=== PATIENT | female | born 2000 | race Caucasian/White ===

== ENCOUNTER 2021-05-12 20:41 | Emergency (ER) | payer SELFPAY ==
[2021-05-12 20:45] VITALS: BP 133/85; PULSE 136; RESP 18; O2SAT 96
--- NOTE | 2021-05-12 21:11 | ED.GENADULT ---
HPI - General Adult General Chief complaint: Unspecified <LOLIS Arrington Last Filed: 05/13/21 01:26> Stated complaint: laceration to arm <LOLIS Arrington Last Filed: 05/13/21 01:26> Time Seen by Provider: 05/12/21 20:53 <LOLIS Arrington Last Filed: 05/13/21 01:26> Source: patient <LOLIS Arrington Last Filed: 05/13/21 01:26> Mode of arrival: ambulatory <LOLIS Arrington Last Filed: 05/13/21 01:26> Limitations: no limitations <LOLIS Arrington Last Filed: 05/13/21 01:26> History of Present Illness HPI narrative: This is a 21 year old female that presents to the ER for laceration to the right forearm sustained just prior to arrival. Reports she got angry and took it out on herself. Reports she cut herself with a knife. She was not attempting to end her life. She does have history of previous self harm. Patient noted to have multiple superficial abrasions and scars to the bilateral upper and lower extremities. She is not up to date on tetanus. Reports she used to see a counselor, but she is no longer seeing them. Denies decreased ROM or numbness. <Katty Hayward PA-C - Last Filed: 05/13/21 01:26> Related Data Allergies/adverse reactions: Allergies Allergy/AdvReac Type Severity Reaction Status Date / Time No Known Allergies Allergy Verified 05/12/21 21:03 <LOLIS Arrington Last Filed: 05/13/21 01:26> Review of Systems Review of Systems: CONSTITUTIONAL: Denies fever SKIN: Reports laceration PSYCHIATRIC: Reports anxiety and depression. <LOLIS Arrington Last Filed: 05/13/21 01:26> All systems reviewed & are unremarkable except as noted in HPI and below <LOLIS Arrington Last Filed: 05/13/21 01:26> [facility] Past Medical History Medical History: Medical History (Updated 05/13/21 @ 01:21 by Katty Hayward PA-C) History of depression <Katty Hayward PA-C - Last Filed: 05/13/21 01:26> Social History Social History: Social History (Updated 05/12/21 @ 21:15 by Katty Hayward PA-C) Smoking status: Current every day smoker <Katty Hayward PA-C - Last Filed: 05/13/21 01:26> Exam Narrative: GENERAL: Well-appearing, well-nourished, and in no acute distress. HEAD: Normocephalic, atraumatic. EYES: EOMI. EXTREMITIES: Normal range of motion. No edema. Several scars noted to the bilateral forearms. Superficial abrasions noted to the thighs. Left forearm with 5cm linear laceration into subcutaneous tissue SKIN: Warm, dry, no rash. NEURO: No focal deficits. Alert and oriented x3. PSYCH: Patient is tearful and mildly anxious appearing <Katty Hayward PA-C - Last Filed: 05/13/21 01:26> Course GUIDE ESCORT/PA Physician Supervision I did not see this patient nor was the care plan discussed with me. I was available for evaluation and consultation, I agree with the documentation as above <Shiv Sandoval MD - Last Filed: 05/13/21 01:37> Consultations Consultation #1: Patient was evaluated by crisis and a safety plan is in place. She was given resources. <Katty Hayward PA-C - Last Filed: 05/13/21 01:26> Date: 05/13/21 <Katty Hayward PA-C - Last Filed: 05/13/21 01:26> Time: 01:00 <Katty Hayward PA-C - Last Filed: 05/13/21 01:26> Vital Signs Vital signs: Vital Signs Pulse Rate 136 H 05/12/21 20:45 Respiratory Rate 18 05/12/21 20:45 Blood Pressure 133/85 05/12/21 20:45 Pulse Oximetry 96 05/12/21 20:45 Pulse Rate 89 05/13/21 00:21 Respiratory Rate 18 05/13/21 00:21 Blood Pressure 129/81 05/13/21 00:21 Pulse Oximetry 98 05/13/21 00:21 <Katty Hayward PA-C - Last Filed: 05/13/21 01:26> Vital Signs Pulse Rate 136 H 05/12/21 20:45 Respiratory Rate 18 05/12/21 20:45 Blood Pressure 133/85 05/12/21 20:45 Pulse Oximetry 96 05/12/21 20:45 Pulse Rate 89 05/13/21 00:21 Respiratory Rate 18 05/13/21 00:21 Blo
[2021-05-12] MEDS: TETANUS,DIPHTHERIA,AC PERTUSSIS ADULT (0.5 ML) BOOSTRIX IM (21:33)
[2021-05-12 21:48] LABS: Basophils Absolute Auto 0.1 K/mm3 (0.0-0.1); Basophils Percent Auto 0.7 % (0.2-1.2); Eosinophils Absolute Auto 0.1 K/mm3 (0-0.3); Eosinophils Percent Auto 0.9 % (0-4.4); Hematocrit 38.8 % (37.0-47.0); Hemoglobin 13.2 g/dL (12.0-15.0); Immature Granulocyte Absolute 0.03 K/mm3 (0.00-0.031); Immature Granulocyte Percent A 0.3 % (0-0.5); Lymphocytes Absolute Auto 1.81 K/mm3 (0.9-3.2); Lymphocytes Percent Auto 18.8 % (18.3-44.2); Mean Corpuscular Hemoglobin 30.6 pg (26-34); Mean Corpuscular Volume 89.8 fl (80-100); Mean Platelet Volume 9.9 fl (7.4-10.4); Monocytes Absolute Auto 0.8 K/mm3 (0.1-0.6); Monocytes Percent Auto 8.1 % (2.6-8.5); Neutrophils Absolute Auto 6.9 K/mm3 (1.3-6.7); Neutrophils Percent Auto 71.2 % (45.5-73.1); Platelet Count Result 262 k/mm3 (150-375); Red Blood Count 4.32 M/mm3 (4.2-5.4); Red Cell Distribution Width 12.4 % (11.5-14.5); White Blood Count 9.6 K/mm3 (4.5-10.0)
[2021-05-12 22:10] LABS: Alanine Aminotransferase 17 U/L (4-35); Albumin Level 4.7 g/dL (3.5-5.1); Alkaline Phosphatase 44 U/L (38-126); Anion Gap 9 mmol/L (8-16); Aspartate Amino Transferase 27 U/L (14-36); Bilirubin,Total 0.3 mg/dL (0.2-1.3); Blood Urea Nitrogen 12 mg/dL (7-17); Calcium 9.6 mg/dL (8.4-10.2); Carbon Dioxide 25 mmol/L (22-30); Chloride 105 mmol/L (98-107); Estimated CRCL calculation 119 ml/min; Estimated Glomerular Filt Rate > 60; Glucose 119 mg/dL (65-110); Potassium 3.7 mmol/L (3.4-5.0); Sodium 139 mmol/L (137-145)
[2021-05-12 22:20] LABS: Ethanol < 10 mg/dL (<10)
[2021-05-12 22:44] LABS: Add Urine Microscopic? YES; Appearance Urine Clear (Clear); Bacteria Urine Trace /hpf; Bilirubin Urine Negative (Negative); Blood Urine Negative (Negative); Color Urine Yellow (Yellow); Glucose Urine UA Negative (Negative); Ketones Urine 1+ mg/dL (Negative); Leukocyte Esterase Ur 1+ LEU/UL (Negative); Mucus Urine Heavy /lpf; Nitrate Urine Negative (Negative); Protein Urine 2+ mg/dL (Negative); Specific Grav Ur 1.027 (1.001-1.035); Squamous Epithelial Cell Urine Many /hpf (Few); WBC Urine 16-20 /hpf
[2021-05-12 23:08] LABS: Barbiturate Screen Urine Negative (Negative); Benzodiazepines Screen Urine Negative (Negative)
[2021-05-12 23:20] LABS: Cannabinoid Screen Urine Negative (Negative); Cocaine Screen Urine Negative (Negative); Methadone Screen Urine Negative (Negative); Opiate Screen Urine Negative (Negative); Phencyclidine Screen Urine Negative (Negative)
--- NOTE | 2021-05-12 23:20 | PC.NURSE ---
patient is medically cleared and this rn is calling crisis at this time.
--- NOTE | 2021-05-12 23:28 | PC.NURSE ---
this rn attempted to contact robina at this time . Denial per Kymberly.
--- NOTE | 2021-05-12 23:33 | PC.NURSE ---
returned call to crisis at this time, pt was denied by robina, so a draw off worker would be out shortly to evaluate the patient.
[2021-05-12 23:40] LABS: Amphetamine Screen Urine Positive (Negative)
[2021-05-13 00:21] VITALS: BP 129/81; PULSE 89; RESP 18; O2SAT 98
== END 2021-05-13 01:51 | disposition home or self-care (01) ==
PROVIDERS: Physician Assistant; Emergency Provider Emergency Medicine
DX: S51.812A Laceration without foreign body of left forearm, initial encounter (principal); R45.88 Nonsuicidal self-harm; F17.200 Nicotine dependence, unspecified, uncomplicated; Z23 Encounter for immunization; W26.0XXA Contact with knife, initial encounter
CPT/HCPCS: 12002; 36415; 80053; 80307; 81001; 81025; 84443; 85025; 87086; 87088; 90471; 90715; 99284

== ENCOUNTER 2021-12-20 16:55 | Inpatient (IN) | payer OTHER, SELFPAY ==
[2021-12-20] VITALS (28 sets, daily range): BP systolic 76–124; BP diastolic 56–80; PULSE 84–99; RESP 16–21; TEMP 37; O2SAT 98–100; BMI 28.0
--- NOTE | ~2021-12-20 | US_ITS ---
EXAMINATION: US venous doppler LE RT DATE: 12/21/2021 09:20 INDICATION: Right lower limb swelling. TECHNIQUE: Grayscale ultrasound images without and with compression and Doppler ultrasound images of the right lower extremity veins were obtained. COMPARISON: None. FINDINGS: The visualized portions of right common femoral vein, profunda (deep) femoral vein, femoral vein, pop liteal vein, peroneal veins, posterior tibial veins, and greater saphenous vein outflow are patent. I n the calf, there is hyperechoic subcutaneous fat and edema, consistent with inflammation. IMPRESSION: 1. No deep venous thrombosis. 2. Subcutaneous inflammation in the patient's area of erythema in the right calf. Reviewed, dictated and finalized at location B. IMPRESSION: 1. No deep venous thrombosis. 2. Subcutaneous inflammation in the patient's area of erythema in the right luke f.
--- NOTE | ~2021-12-20 | US_ITS ---
EXAMINATION: US soft tissue LE RT DATE: 12/22/2021 16:02 INDICATION: Swelling and erythema at the medial right lower leg. Assess for hematoma or abscess. TECHNIQUE: Multiple grayscale and Doppler ultrasound images of the region of concern at the medial as pect of the proximal right calf were obtained. COMPARISON: Ultrasound dated 12/21/2021 and right tibia/fibular radiographs dated 12/20/2021 FINDINGS: There is an 8.2 x 4.0 x 7.9 cm anechoic fluid collection in the subcutaneous tissues at the region of concern. There is mild hyperemia in the overlying subcutaneous tissues on color Doppler. No evident internal vascular flow within the lesion on color Doppler. IMPRESSION: 1. 2.2 x 4.0 x 7.9 cm loculated fluid collection in the subcutaneous tissues at the region of concern . Differential would include hematoma or abscess. Reviewed, dictated and finalized at location A. IMPRESSION: 1. 2.2 x 4.0 x 7.9 cm loculated fluid collection in the subcutaneous tissues at the region of concern. Differential would include hematoma or abscess.
--- NOTE | ~2021-12-20 | US_ITS ---
EXAMINATION: US OB follow up DATE: 12/21/2021 09:20 INDICATION: Sepsis. No care. TECHNIQUE: Real-time ultrasound of the pelvis was performed. COMPARISON: None. FINDINGS: There is a single living fetus in breech presentation. The placenta is anterior, 1.6 cm from the cer vix. heart rate is 176 beats per minute (bpm). The amniotic fluid volume is subjectively normal . The following biometric data were obtained: Biparietal diameter (BPD): 4.8 cm; head circumference (HC): 17.3 cm; abdominal circumference (AC): 16 .0 cm; femur length (FL): 3.1 cm. These measurements are concordant. Estimated weight is 348 g +/- 52 g, which correlates with the 26th percentile when 05/05/22 is u sed as estimated date of delivery. As single measurements, these parameters are each equal to the following estimated gestational ages: BPD: 20 weeks 3 days. HC: 19 weeks 6 days. AC: 21 weeks 0 days. FL: 19 weeks 5 days. estimated gestational age based solely on measurements from this exam is 20 weeks 2 days +/- 1 weeks 3 days. IMPRESSION: 1. Single living fetus in breech presentation. 2. Estimated weight is 348 g +/- 52 g, which correlates with the 26th percentile when 05/05/22 is used as estimated date of delivery. 3. Low-lying placenta. Reviewed, dictated and finalized at location B. IMPRESSION: 1. Single living fetus in breech presentation. 2. Estimated weight is 348 g +/- 52 g, which correlates with the 26th pe rcentile when 05/05/22 is used as estimated date of delivery. 3. Low-lying placenta.
--- NOTE | ~2021-12-20 | XR_ITS ---
EXAM: XR tibia fibula RT 2V HISTORY: pain, swelling, redness . COMPARISON: None available. FINDINGS: Normal mineralization. No fracture or dislocation. No lytic or blastic lesion. Joint space s are maintained. No erosion or periosteal change. Soft tissue swelling at the level of the proximal right tibia. IMPRESSION: No acute osseous finding in the right tibia or fibula. Reviewed, dictated and finalized at location K.
[2021-12-20 21:13] LABS: Appearance Urine Cloudy (Clear); Bilirubin Urine Negative (Negative); Blood Urine Negative (Negative); Color Urine Yellow (Yellow); Glucose Urine UA Negative (Negative); Ketones Urine Negative (Negative); Leukocyte Esterase Ur 1+ LEU/UL (Negative); Nitrate Urine Negative (Negative); Protein Urine Negative (Negative); Urobilinogen Urine 0.2 mg/dL (<2.0)
[2021-12-20 21:18] LABS: Amorphous Sediment Urine Few; Bacteria Urine Trace /hpf; RBC Urine 0-2 /hpf (0-2); Squamous Epithelial Cell Urine Many /hpf (Few)
[2021-12-20 21:19] LABS: Add Urine Microscopic? YES
[2021-12-20 21:21] LABS: Lactic Acid Reflex 1.3 mmol/L (0.7-2.0)
[2021-12-20 21:24] LABS: Basophils Percent Auto 0.2 % (0.2-1.2); Hematocrit 33.4 % (37.0-47.0); Hemoglobin 11.5 g/dL (12.0-15.0); Immature Granulocyte Absolute 0.25 K/mm3 (0.00-0.031); Mean Corpuscular HGB Conc 34.4 g/dl (32-36); Mean Platelet Volume 9.7 fl (7.4-10.4); Monocytes Absolute Auto 1.5 K/mm3 (0.1-0.6); Monocytes Percent Auto 5.8 % (2.6-8.5); Neutrophils Absolute Auto 23.6 K/mm3 (1.3-6.7); Platelet Count Result 277 k/mm3 (150-375); Red Blood Count 3.71 M/mm3 (4.2-5.4); Red Cell Distribution Width 12.9 % (11.5-14.5); White Blood Count 26.2 K/mm3 (4.5-10.0)
[2021-12-20 21:26] LABS: Alanine Aminotransferase 25 U/L (6-35); Albumin Level 3.9 g/dL (3.5-5.1); Alkaline Phosphatase 81 U/L (38-126); Anion Gap 4 mmol/L (8-16); Aspartate Amino Transferase 30 U/L (14-36); Bilirubin,Total 0.3 mg/dL (0.2-1.3); Blood Urea Nitrogen 6 mg/dL (7-17); CRP 8.4 mg/dL (<1.0); Calcium 9.1 mg/dL (8.4-10.2); Carbon Dioxide 23 mmol/L (22-30); Chloride 101 mmol/L (98-107); Creatine Kinase 26 U/L (30-135); Estimated CRCL calculation 146 ml/min; Estimated Glomerular Filt Rate > 60; Glucose 106 mg/dL (65-110); Sodium 128 mmol/L (137-145)
[2021-12-20 21:29] LABS: INR 1.1; Prothrombin Time 13.3 Seconds (11.1-14.7)
[2021-12-20 21:30] LABS: Partial Thromboplastin Time 25.8 SECONDS (22.3-36.8)
[2021-12-20] MEDS: LACTATED RINGERS 1,000 ML 999 ML IV CONT (21:32)
--- NOTE | 2021-12-20 21:51 | ED.LOWEXIN ---
HPI - Extremity Injury (Lower) General Chief Complaint: Extremity Injury, Lower Stated Complaint: right leg injury 1 1/2 weeks ago Time Seen by Provider: 12/20/21 20:00 Source: patient and RN notes reviewed Mode of arrival: ambulatory Limitations: no limitations History of Present Illness HPI Narrative: This is a 21 year old female [place] 20wks by US who presents for evaluation of right leg redness, pain and swelling. She states over 1 week ago she fell onto the bench outside of her window. She had an abrasion to her leg at that point, but she has been able to ambulate with difficulty. Today she developed sudden onset right lower leg redness and pain. She denies fever, chills, nausea, vomiting, abdominal pain or vaginal bleeding. She denies chest pain or shortness of breath. She denies hitting her head head or LOC. Patient reports having recent US showing due date is 05/05/2022. She has not received care though. MD complaint: leg injury and fall Related Data Home Medications Medication Instructions Recorded Confirmed No Home Medications 12/21/21 12/21/21 Allergies Allergy/AdvReac Type Severity Reaction Status Date / Time No Known Allergies Allergy Verified 12/20/21 20:00 Review of Systems Review of Systems: All systems reviewed & are unremarkable except as noted in HPI and below PMFSH Past Medical History Medical History (Updated 12/20/21 @ 22:02 by Magalys Hernandez MD) History of depression Social History Social History (Updated 05/12/21 @ 21:15 by Katty Hayward PA-C) Years smoked: 2 Smoking status: Current some day smoker Tobacco type: cigarettes Second hand tobacco smoke exposure: Yes Alcohol intake: current Drinks per week: 1 Substance use: former Substance use type: methamphetamine Last use: November Spiritual care concerns: No Exam Const: General: no acute distress and alert Orientation/consciousness: patient oriented x3 Eyes: EOM: EOMs intact bilaterally Chest: Chest palpation & inspection: normal inspection of the chest Resp: Effort & Inspection: normal respiratory effort and no retractions Auscultation: clear to auscultation bilaterally Cardio: Rate: tachycardic Rhythm: regular rhythm Heart sounds: no murmurs GI: GI Palp: Yes Soft to palpation, No Tenderness to palpation present (GI), No Guarding due to palpation present (GI) and No Rigid due to palpation Auscultation: normal bowel sounds Skin: Other: left forearm with healed scars from cutting; right lower leg with patches of erythema with induration and tendernss. Neuro: General: patient oriented x3, moves all extremities and CN's II-XI intact bilaterally Extrem: Other: right leg cellultis Psych: Mental Status: mental status grossly normal Affect: normal affect Course Reevaluation(s) Reevaluation #1: PAtient is aware she will be admitted for IV antibiotics. I performed bedside US showing FHT 158 Date: 12/20/21 Time: 22:01 Consultations Consultation #1: I discussed case with Dr. Mayorga who agrees to admit patient over night for IV antibiotics for right leg cellulitis. will order US in am to rule out DVT. hold off on lovenox right now. Date: 12/20/21 Time: 21:55 Vital Signs Vital signs: Vital Signs Temperature 98.6 F 12/20/21 17:24 Pulse Rate 90 12/20/21 17:24 Respiratory Rate 21 H 12/20/21 17:24 Blood Pressure 114/56 L 12/20/21 17:24 Pulse Oximetry 98 12/20/21 17:24 Temperature 98.8 F 12/21/21 06:00 Pulse Rate 111 H 12/21/21 06:00 Respiratory Rate 22 H 12/21/21 06:00 Blood Pressure 99/59 L 12/21/21 06:00 Pulse Oximetry 100 12/21/21 06:00 MDM - Extremity Injury (Lower) Lab Data Attestation: I reviewed the patient's lab results. Result diagrams: 12/20/21 21:02 12/20/21 21:02 Labs: Lab Results 12/20/21 12/20/21 12/20/21 Range/Units 21:02 21:02 21:02 WBC 26.2 H (4.5-10.0) K/mm3 RBC 3.71 L
[2021-12-21] MEDS: SODIUM CHLORIDE 0.9% IV 1,000 ML 125 ML IV CONT (02:29)
[2021-12-21 06:00] VITALS: BP 99/59; PULSE 111; RESP 22; TEMP 37.1; O2SAT 100
--- NOTE | 2021-12-21 08:12 | PM.IMHP ---
H&P: HPI History of Present Illness Date/Time: 12/21/21 08:12 Chief Complaint: leg pain, swelling Narrative: 21 yo at approximately 20w presents to the ED last night for leg pain and swelling. Pt states that almost 2 wks ago she was attempting to crawl in through a window at her house to see her cat and she fell. She states she fellt approximately 6 ft and injured her leg. She states she simply iced the cut on her leg. Pt states that yesterday her leg became more red and swollen. She denies any chest pain, SOB. She denies any fevers, chills, nausea, vomiting. Pt has not had any care. When questioned, pt states she was going to have an but then decided to proceed with the . This was an unplanned . Pt reports a history of methamphetamine use. She states her last use was 2 months ago. She also reports tobacco use. Pt reports mental health issues and struggles with depression. Pt has never seen a physician for these issues. Pt has a history of self-harm with multiple scars on her arms. Pt also struggles with picking her sores and scabs which has led to infections and poor healing. Pt denies any suicidal or homicidal ideation at this time. When asked she did say, no, but I can't wait to watch the world burn. Review of Systems Review of Systems: All systems reviewed & are unremarkable except as noted in HPI and below Cardiovascular: Cardiovascular: Denies chest pain, Denies leg edema, Denies palpitations, Denies dyspnea and Denies dyspnea on exertion Respiratory: Respiratory: Denies cough, Denies dyspnea and Denies dyspnea on exertion Gastrointestinal: Gastrointestinal: Denies abdominal pain, Denies constipation, Denies diarrhea, Denies nausea and Denies vomiting Genitourinary: Genitourinary: Denies hematuria, Denies urinary frequency, Denies dysuria, Denies pelvic pain, Denies urinary incontinence and Denies vaginal discharge Musculoskeletal: Musculoskeletal: Reports as per HPI Psychiatric: Psychiatric: Reports as per HPI [facility] Past Medical History Medical History (Updated 12/21/21 @ 08:38 by Graeme Mayorga MD) History of depression Social History Social History (Updated 05/12/21 @ 21:15 by Katty Hayward PA-C) Years smoked: 2 Smoking status: Current some day smoker Tobacco type: cigarettes Second hand tobacco smoke exposure: Yes Alcohol intake: current Drinks per week: 1 Substance use: former Substance use type: methamphetamine Last use: November [facility] care concerns: No Meds Home Medications and Allergies Home Medications Medication Instructions Recorded Confirmed Type No Home Medications 12/21/21 12/21/21 History Allergies Allergy/AdvReac Type Severity Reaction Status Date / Time No Known Allergies Allergy Verified 12/20/21 20:00 Vital Signs Vital Signs - 24 hr 12/20/21 17:24 12/20/21 19:50 12/20/21 19:51 Temperature 37.0 C Pulse Rate 90 Respiratory Rate 21 H Blood Pressure 114/56 L 124/78 Pulse Oximetry 98 100 100 12/20/21 19:53 12/20/21 20:00 12/20/21 20:01 Temperature Pulse Rate 99 Respiratory Rate 20 Blood Pressure 124/78 115/65 Pulse Oximetry 100 100 100 12/20/21 20:15 12/20/21 20:16 12/20/21 20:30 Temperature Pulse Rate Respiratory Rate Blood Pressure 117/73 Pulse Oximetry 100 100 100 12/20/21 20:31 12/20/21 20:45 12/20/21 20:46 Temperature Pulse Rate Respiratory Rate Blood Pressure 113/79 116/75 Pulse Oximetry 100 100 100 12/20/21 21:00 12/20/21 21:01 12/20/21 21:15 Temperature Pulse Rate Respiratory Rate Blood Pressure 122/65 Pulse Oximetry 100 100 100 12/20/21 21:16 12/20/21 21:30 12/20/21 21:31 Temperature Pulse Rate Respiratory Rate Blood Pressure 119/65 76/60 L Pulse Oximetry 100 99 99 12/20/21 21:45 12/20/21 21:46 12/20/21 22:00 Temperature Pulse Rate Respiratory Rate Blood Pressure 107/73 Pu
[2021-12-21 08:17] LABS: Basophils Percent Auto 0.2 % (0.2-1.2); Hematocrit 33.4 % (37.0-47.0); Hemoglobin 11.2 g/dL (12.0-15.0); Immature Granulocyte Absolute 0.21 K/mm3 (0.00-0.031); Immature Granulocyte Percent A 0.9 % (0-0.5); Lymphocytes Absolute Auto 0.73 K/mm3 (0.9-3.2); Lymphocytes Percent Auto 3.2 % (18.3-44.2); Mean Corpuscular HGB Conc 33.5 g/dl (32-36); Mean Corpuscular Hemoglobin 31.1 pg (26-34); Mean Corpuscular Volume 92.8 fl (80-100); Mean Platelet Volume 9.5 fl (7.4-10.4); Monocytes Absolute Auto 1.5 K/mm3 (0.1-0.6); Monocytes Percent Auto 6.7 % (2.6-8.5); Neutrophils Absolute Auto 20.2 K/mm3 (1.3-6.7); Platelet Count Result 241 k/mm3 (150-375); Red Cell Distribution Width 13.1 % (11.5-14.5); White Blood Count 22.7 K/mm3 (4.5-10.0)
[2021-12-21 08:30] LABS: Alanine Aminotransferase 22 U/L (6-35); Albumin Level 3.1 g/dL (3.5-5.1); Alkaline Phosphatase 70 U/L (38-126); Anion Gap 8 mmol/L (8-16); Aspartate Amino Transferase 26 U/L (14-36); Bilirubin,Total 0.3 mg/dL (0.2-1.3); Blood Urea Nitrogen 6 mg/dL (7-17); Calcium 8.2 mg/dL (8.4-10.2); Carbon Dioxide 23 mmol/L (22-30); Chloride 104 mmol/L (98-107); Estimated CRCL calculation 200 ml/min; Estimated Glomerular Filt Rate > 60; Glucose 106 mg/dL (65-110); Potassium 3.8 mmol/L (3.4-5.0); Sodium 135 mmol/L (137-145)
[2021-12-21 09:28] LABS: Rubella IgG Antibody 44.7 IU/ML
[2021-12-21 11:26] LABS: HIV 1/2 Ab P24 Ag Result Negative (Negative)
[2021-12-21 11:30] LABS: Amphetamine Screen Urine Negative (Negative); Barbiturate Screen Urine Negative (Negative); Benzodiazepines Screen Urine Negative (Negative); Cannabinoid Screen Urine Positive (Negative); Cocaine Screen Urine Negative (Negative); Methadone Screen Urine Negative (Negative); Opiate Screen Urine Negative (Negative); Phencyclidine Screen Urine Negative (Negative)
[2021-12-21 11:53] LABS: Rapid Plasma Reagin Non-Reactive (NonReactive)
[2021-12-21] MEDS: LACTATED RINGERS 1,000 ML 125 ML IV CONT ×2 (12:14→21:43)
[2021-12-21 13:47] LABS: Hepatitis B Surface Antigen Negative (Negative)
[2021-12-21 13:53] LABS: HAV RESULT Negative (Negative); Hepatitis B Core IgM Result Negative (Negative)
[2021-12-21 14:00] VITALS: BP 118/56; PULSE 107; RESP 19; TEMP 36.3; O2SAT 100
[2021-12-21 14:04] LABS: Hepatitis C Virus Antibody Negative (Negative)
[2021-12-21 19:35] LABS: SARS-CoV-2 RNA PCR Negative
[2021-12-21 22:00] VITALS: BP 120/80; PULSE 109; RESP 18; TEMP 37.1; O2SAT 100
[2021-12-22 05:58] VITALS: BP 94/62; PULSE 106; RESP 18; TEMP 35.8; O2SAT 100
[2021-12-22 07:34] LABS: Hemoglobin 10.3 g/dL (12.0-15.0); Mean Corpuscular HGB Conc 33.2 g/dl (32-36); Mean Corpuscular Hemoglobin 30.8 pg (26-34); Mean Corpuscular Volume 92.8 fl (80-100); Mean Platelet Volume 9.5 fl (7.4-10.4); Platelet Count Result 220 k/mm3 (150-375); Red Blood Count 3.34 M/mm3 (4.2-5.4); Red Cell Distribution Width 12.9 % (11.5-14.5); White Blood Count 22.4 K/mm3 (4.5-10.0)
--- NOTE | 2021-12-22 07:54 | PM.OBPNVD ---
OB - PN: Subj Subjective Date/time seen: 12/22/21 07:54 Interval history: Pt doing well this AM. Pt still having intense pain in her leg. Pt has had trouble ambulating due to pain. Pt denies any fevers, chills, nausea, vomiting OB - PN: Obj Data Labs CBC & Chem 7: 12/22/21 07:20 12/21/21 07:59 Labs: Laboratory Results - last 24 hr 12/20/21 12/21/21 12/21/21 22:21 07:56 07:59 WBC 22.7 H RBC 3.60 L Hgb 11.2 L Hct 33.4 L MCV 92.8 MCH 31.1 MCHC 33.5 RDW 13.1 Plt Count 241 MPV 9.5 Immature Gran % (Auto) 0.9 H Neut % (Auto) 89.0 H Lymph % (Auto) 3.2 L [place] % (Auto) 6.7 Eos % (Auto) 0.0 Baso % (Auto) 0.2 Lymph # (Auto) 0.73 L [place] # (Auto) 1.5 H Eos # (Auto) 0.0 Baso # (Auto) 0.0 Abs Immat Gran (auto) 0.21 H Absolute Neuts (auto) 20.2 H Absolute Nucleated RBC 0.0 Nucleated RBC % 0.0 Sodium Potassium Chloride Carbon Dioxide Anion Gap BUN Creatinine Estim Creat Clear Calc Estimated GFR Glucose Calcium Total Bilirubin AST ALT Alkaline Phosphatase Total Protein Albumin Urine Opiates Screen Urine Methadone Screen Ur Barbiturates Screen Ur Phencyclidine Scrn Ur Amphetamine Screen U Benzodiazepines Scrn Urine Cocaine Screen U Cannabinoids Screen RPR Hepatitis A IgM Ab Hep Bs Antigen Hep B Core IgM Ab Hepatitis C Ab Screen HIV 1&2 Ab/P24 Ag 4thGn Rubella IgG Antibody SARS-CoV-2 RNA (RT-PCR) Negative Blood Type A Negative Antibody Screen Negative 12/21/21 12/21/21 12/21/21 07:59 08:31 08:31 WBC RBC Hgb Hct MCV MCH MCHC RDW Plt Count MPV Immature Gran % (Auto) Neut % (Auto) Lymph % (Auto) [place] % (Auto) Eos % (Auto) Baso % (Auto) Lymph # (Auto) [place] # (Auto) Eos # (Auto) Baso # (Auto) Abs Immat Gran (auto) Absolute Neuts (auto) Absolute Nucleated RBC Nucleated RBC % Sodium 135 L Potassium 3.8 Chloride 104 Carbon Dioxide 23 Anion Gap 8 BUN 6 L Creatinine 0.40 L Estim Creat Clear Calc 200 Estimated GFR > 60 Glucose 106 Calcium 8.2 L Total Bilirubin 0.3 AST 26 ALT 22 Alkaline Phosphatase 70 Total Protein 7.0 Albumin 3.1 L Urine Opiates Screen Urine Methadone Screen Ur Barbiturates Screen Ur Phencyclidine Scrn Ur Amphetamine Screen U Benzodiazepines Scrn Urine Cocaine Screen U Cannabinoids Screen RPR Non-reactive Hepatitis A IgM Ab Hep Bs Antigen Hep B Core IgM Ab Hepatitis C Ab Screen HIV 1&2 Ab/P24 Ag 4thGn Negative Rubella IgG Antibody SARS-CoV-2 RNA (RT-PCR) Blood Type Antibody Screen 12/21/21 12/21/21 12/21/21 08:31 08:31 10:48 WBC RBC Hgb Hct MCV MCH MCHC RDW Plt Count MPV Immature Gran % (Auto) Neut % (Auto) Lymph % (Auto) [place] % (Auto) Eos % (Auto) Baso % (Auto) Lymph # (Auto) [place] # (Auto) Eos # (Auto) Baso # (Auto) Abs Immat Gran (auto) Absolute Neuts (auto) Absolute Nucleated RBC Nucleated RBC % Sodium Potassium Chloride Carbon Dioxide Anion Gap BUN Creatinine Estim Creat Clear Calc Estimated GFR Glucose Calcium Total Bilirubin AST ALT Alkaline Phosphatase Total Protein Albumin Urine Opiates Screen Negative Urine Methadone Screen Negative Ur Barbiturates Screen Negative Ur Phencyclidine Scrn Negative Ur Amphetamine Screen Negative U Benzodiazepines Scrn Negative Urine Cocaine Screen Negative U Cannabinoids Screen Positive A RPR Hepatitis A IgM Ab Negative Hep Bs Antigen Negative Hep B Core IgM Ab Negative Hepatitis C Ab Screen Negative HIV 1&2 Ab/P24 Ag 4thGn Rubella IgG Antibody 44.7 CLEO
[2021-12-22 08:23] LABS: Band Neutrophils Percent 7 % (0-6); Lymphocytes Absolute Manual 0.89 K/mm3 (1.1-4.5); Monocytes Absolute Manual 0.22 K/mm3 (0.1-0.90); Monocytes Percent Manual 1 % (3-9); Neutrophils Absolute Manual 21.28 K/mm3 (1.7-7.2); Neutrophils Percent Manual 88 % (46-73); Platelet Estimate Adequate (Adequate); Total Cells Counted 100
--- NOTE | 2021-12-22 13:06 | PM.DS ---
DS: Admitting Diagnosis Discharge Date 12/24/2021 <Pasquale Owusu MD - Last Filed: 12/24/21 08:49> Admitting Diagnosis right lower leg cellulitis supervision of high risk no care h/o methamphetamine use <Graeme Mayorga MD - Last Filed: 12/26/21 07:49> Cellulitis. Sepsis. Twenty week . Substance abuse <Pasquale Owusu MD - Last Filed: 12/24/21 08:49> DS: Discharge Diagnosis Discharge Diagnosis (1) Substance abuse affecting , antepartum: Code(s): O99.320 - Drug use complicating , unspecified trimester <Graeme Mayorga MD - Last Filed: 12/26/21 07:49> Status: Acute <Graeme Mayorga MD - Last Filed: 12/26/21 07:49> (2) No care in current : Code(s): O09.30 - Supervision of with insufficient care, unspecified trimester <Graeme Mayorga MD - Last Filed: 12/26/21 07:49> Status: Acute <Graeme Mayorga MD - Last Filed: 12/26/21 07:49> (3) Supervision of high risk , unspecified, unspecified trimester: Code(s): O09.90 - Supervision of high risk , unspecified, unspecified trimester <Graeme Mayorga MD - Last Filed: 12/26/21 07:49> Status: Acute <Graeme Mayorga MD - Last Filed: 12/26/21 07:49> (4) Cellulitis of right leg: Code(s): L03.115 - Cellulitis of right lower limb <Graeme Mayorga MD - Last Filed: 12/26/21 07:49> Status: Acute <Graeme Mayorga MD - Last Filed: 12/26/21 07:49> DS: Summary Hospital Course Hospital Course: The patient was admitted as a walk-in 20 weeks with no care. She is a known substance abuser and an abscess was seen. She was begun on IV antibiotics and then transition to oral antibiotics. She did have incision and drainage with Dr. Krishnan of the right lower limb. Please see the operative refer for full details. Her hospital course was otherwise unremarkable she was eating voiding and doing well. She plans to see the an OBGYN in [place]. <Pasquale Owusu MD - Last Filed: 12/24/21 08:49> Time Spent with Patient Time attestation: Total time spent providing and/or coordinating discharge services: <Graeme Mayorga MD - Last Filed: 12/26/21 07:49> Exam Const: General: cooperative, no acute distress and well developed <Graeme Mayorga MD - Last Filed: 12/26/21 07:49> Nutritional Appearance: average body habitus <Graeme Mayorga MD - Last Filed: 12/26/21 07:49> Resp: Effort & Inspection: normal respiratory effort and able to speak in complete sentences <Graeme Mayorga MD - Last Filed: 12/26/21 07:49> Cardio: Rate: tachycardic <Graeme Mayorga MD - Last Filed: 12/26/21 07:49> Rhythm: regular rhythm <Graeme Mayorga MD - Last Filed: 12/26/21 07:49> GI: GI Palp: No abdominal tenderness <Graeme Mayorga MD - Last Filed: 12/26/21 07:49> Skin: General skin exam: erythema (R lower leg) <Graeme Mayorga MD - Last Filed: 12/26/21 07:49> Extrem: Right lower extremity: edema <Graeme Mayorga MD - Last Filed: 12/26/21 07:49> DS: Data Data Completed and Pending Labs on day of discharge: Labs from last 24 hours 12/22/21 12/21/21 12/20/21 07:20 08:31 22:21 WBC 22.4 H RBC 3.34 L Hgb 10.3 L Hct 31.0 L MCV 92.8 MCH 30.8 MCHC 33.2 RDW 12.9 Plt Count 220 MPV 9.5 Immature Gran % (Auto) Not Reportable Neut % (Auto) Not Reportable Lymph % (Auto) Not Reportable [place] % (Auto) Not Reportable Eos % (Auto) Not Reportable Baso % (Auto) Not Reportable Lymph # (Auto) Not Reportable [place] # (Auto) Not Reportable Eos # (Auto) Not Reportable Baso # (Auto) Not Reportable Abs Immat Gran (auto) Not Reportable Absolute Neuts (auto) Not Reportable Absolute Nucleated RBC Not Reportable Total Counted 100 Neutrophils % (Manual) 88 H Band Neutroph
--- NOTE | 2021-12-22 13:13 | PM.OBPNVD ---
OB - PN: Subj Subjective Date/time seen: 12/22/21 13:13 Interval history: Pt still report pain in her leg. She has not been up out of bed due to the pain. OB - PN: Obj Data Labs CBC & Chem 7: 12/22/21 07:20 12/21/21 07:59 Labs: Laboratory Results - last 24 hr 12/20/21 12/21/21 12/22/21 22:21 08:31 07:20 WBC 22.4 H RBC 3.34 L Hgb 10.3 L Hct 31.0 L MCV 92.8 MCH 30.8 MCHC 33.2 RDW 12.9 Plt Count 220 MPV 9.5 Immature Gran % (Auto) Not Reportable Neut % (Auto) Not Reportable Lymph % (Auto) Not Reportable [place] % (Auto) Not Reportable Eos % (Auto) Not Reportable Baso % (Auto) Not Reportable Lymph # (Auto) Not Reportable [place] # (Auto) Not Reportable Eos # (Auto) Not Reportable Baso # (Auto) Not Reportable Abs Immat Gran (auto) Not Reportable Absolute Neuts (auto) Not Reportable Absolute Nucleated RBC Not Reportable Total Counted 100 Neutrophils % (Manual) 88 H Band Neutrophils % 7 H Lymphocytes % (Manual) 4.0 L Monocytes % (Manual) 1 L Nucleated RBC % Not Reportable Abs Neuts (Manual) 21.28 H Abs Lymphs (Manual) 0.89 L Abs Monocytes (Manual) 0.22 Platelet Estimate Adequate Hepatitis A IgM Ab Negative Hep Bs Antigen Negative Hep B Core IgM Ab Negative Hepatitis C Ab Screen Negative SARS-CoV-2 RNA (RT-PCR) Negative OB - PN A/P Assessment and Plan (1) Cellulitis of right leg: Code(s): L03.115 - Cellulitis of right lower limb Status: Acute Assessment and Plan: erythema improving s/p IV ancef for 24 hr pt tolerated bactrim DS this AM will continue PO abx There is a large fluctuant area on the medial aspect of the R lower leg This area is taught and tender to palpation will consult general surgery to see if there is any indication for I&D will keep pt overnight, will repeat CBC in AM Time Spent With Patient Time: Total time spent is greater than 50% in coordination of care (as documented) at patient's floor/unit and/or counseling patient:
[2021-12-22 14:00] VITALS: BP 107/69; PULSE 95; RESP 18; TEMP 36.7; O2SAT 100
--- NOTE | 2021-12-22 14:03 | PM.CNGS ---
Assessment and Plan Assessment and plan (1) Cellulitis of right leg: Code(s): L03.115 - Cellulitis of right lower limb Status: Acute Assessment and Plan: She has a large localized fluctuant area of swelling on the right lower leg just medial to the tibial tuberosity with cellulitis. Plain films showed no fracture. Venous doppler negative for DVT. She is extremely tender in this area and is currently not even bearing weight on this extremity. My concern is that she may have developed a hematoma after the fall and subsequent injuries to this area, which has now become infected. There is no overlying wound or abrasion in this area, and no overlying pressure necrosis. With how painful it is to even examine her leg and how deep this appears, I think it would be unlikely for her to tolerate a bedside procedure with local anesthetic if she requires an I&D. We will get a soft tissue US of the right lower leg to further evaluate. Will make her NPO after midnight in case she needs to be taken to the OR for incision and drainage tomorrow. Continue antibiotics. Repeat labs tomorrow. (2) : Qualifiers: Weeks of gestation: 20 weeks Qualified Code(s): Z3A.20 - 20 weeks gestation of Code(s): Z34.90 - Encounter for supervision of normal , unspecified, unspecified trimester Status: Acute Assessment and Plan: Increased risks of anesthesia during , she is in the 2nd trimester. (3) Fall: Code(s): W19.XXXA - Unspecified fall, initial encounter Status: Acute Assessment and Plan: S/p fall 2 weeks ago. Plain films of right lower extremity showed no fracture. (4) Substance abuse affecting , antepartum: Code(s): O99.320 - Drug use complicating , unspecified trimester Status: Acute Assessment and Plan: Hx of methamphetamine use, reportedly not for almost 2 months. Denies ever injecting. Additional Plan I have discussed the patient's case and plan of care with Dr. Martinez. Thank you for allowing us to see the patient in consultation and we will continue to follow along with you. History of Present Illness Consult details Consult date: 12/22/21 Reason for consult: other (Right lower leg cellulitis with possible abscess) Requesting physician: Graeme Mayorga MD Narrative: This is a 21 year-old female 20 weeks gestation who presented to the ER on 12/20/21 with complaints of right lower leg swelling, redness, and pain. She reportedly fell about 6 feet from trying to climb into a window to get into her house. She fell outside on a bench to the ground. She initially noticed some bruising and a hard knot in this area. She reportedly had a few small abrasions that has since nearly healed or completely healed. She was having pain in the right lower leg and applied ice, which seemed to help with swelling and pain. She then has been moving into a new house and has reinjured this same area by bumping it on boxes with moving over the past few weeks. She then began to notice redness, worsening pain, and more swelling to this area that prompted her to go to the ER. Plain films of the right lower leg showed no acute fracture. She was admitted and started on IV Ancef. She has since been switched to oral Bactrim. Her WBC was 24K and has come down slightly to 22K. She is afebrile. Right lower extremity venous doppler showed no DVT, but subcutaneous inflammation in the patient's area of erythema in the right calf. She was noticed to have more swelling with a fluctuant area on the medial lower leg today and our service was consulted for possible abscess and evaluation for I&D. Patient is now seen on the medical floor. She has been having so much pain in the right lower extremity that she is not walking. She is extremely tender to touch and does not even want to bend her knee. She denies any IV drug use in this extremity or at all. She states she typically would
--- NOTE | 2021-12-22 16:17 | PC.NURSE ---
patient returning to room from ultrasound
[2021-12-22] MEDS: ACETAMINOPHEN 500 MG TABLET 1000 MG PO ×2 (18:06→23:52)
[2021-12-22 21:50] VITALS: BP 95/70; PULSE 92; RESP 18; TEMP 35.8; O2SAT 99
[2021-12-23] VITALS (11 sets, daily range): BP systolic 100–114; BP diastolic 56–74; PULSE 80–100; RESP 10–21; TEMP 35.8–37.1; O2SAT 98–100
[2021-12-23 06:41] LABS: Basophils Absolute Auto 0.1 K/mm3 (0.0-0.1); Basophils Percent Auto 0.3 % (0.2-1.2); Eosinophils Absolute Auto 0.2 K/mm3 (0-0.3); Eosinophils Percent Auto 0.9 % (0-4.4); Hematocrit 31.8 % (37.0-47.0); Hemoglobin 10.4 g/dL (12.0-15.0); Immature Granulocyte Absolute 0.14 K/mm3 (0.00-0.031); Immature Granulocyte Percent A 0.8 % (0-0.5); Lymphocytes Absolute Auto 1.46 K/mm3 (0.9-3.2); Lymphocytes Percent Auto 7.9 % (18.3-44.2); Mean Corpuscular HGB Conc 32.7 g/dl (32-36); Mean Corpuscular Hemoglobin 30.5 pg (26-34); Mean Corpuscular Volume 93.3 fl (80-100); Mean Platelet Volume 9.7 fl (7.4-10.4); Monocytes Percent Auto 5.5 % (2.6-8.5); Neutrophils Absolute Auto 15.6 K/mm3 (1.3-6.7); Neutrophils Percent Auto 84.6 % (45.5-73.1); Platelet Count Result 237 k/mm3 (150-375); Red Blood Count 3.41 M/mm3 (4.2-5.4); Red Cell Distribution Width 12.8 % (11.5-14.5); White Blood Count 18.4 K/mm3 (4.5-10.0)
[2021-12-23] MEDS: ACETAMINOPHEN 500 MG TABLET 1000 MG PO ×3 (07:40→23:06)
--- NOTE | 2021-12-23 09:01 | WPDANESEPPF ---
Anes - Initial Pre Proc Eval Procedure: Operation Date: 12/23/21 14:00 Proposed Procedures p Incision and Drainage Abscess Right Lower Extremity - Corina Martinez MD Date/Time: 12/23/21 09:01 Surgeon: Graeme Mayorga MD Pre Op Diagnosis: Right Leg Cellulitis Patient Data Age: 21 Gender: F Height: 1.7 m Weight: 81.2 kg Last Vital Signs Temp 36.7 C 12/23/21 06:00 Pulse 80 12/23/21 06:00 Resp 18 12/23/21 06:00 BP 105/60 12/23/21 06:00 Pulse Ox 98 12/23/21 06:00 Allergies Allergy/AdvReac Type Severity Reaction Status Date / Time No Known Allergies Allergy Verified 12/23/21 13:11 Home Medications Medication Instructions Recorded Confirmed Type No Home Medications 12/21/21 12/21/21 History Laboratory Tests 12/23/21 06:27 WBC 18.4 K/mm3 H K/mm3 (4.5-10.0) RBC 3.41 M/mm3 L M/mm3 (4.2-5.4) Hgb 10.4 g/dL L g/dL (12.0-15.0) Hct 31.8 % L % (37.0-47.0) MCV 93.3 fl fl (80-100) MCH 30.5 pg pg (26-34) MCHC 32.7 g/dl g/dl (32-36) RDW 12.8 % % (11.5-14.5) Plt Count 237 k/mm3 k/mm3 (150-375) MPV 9.7 fl fl (7.4-10.4) Immature Gran % (Auto) 0.8 % H % (0-0.5) Neut % (Auto) 84.6 % H % (45.5-73.1) Lymph % (Auto) 7.9 % L % (18.3-44.2) [place] % (Auto) 5.5 % % (2.6-8.5) Eos % (Auto) 0.9 % % (0-4.4) Baso % (Auto) 0.3 % % (0.2-1.2) Lymph # (Auto) 1.46 K/mm3 K/mm3 (0.9-3.2) [place] # (Auto) 1.0 K/mm3 H K/mm3 (0.1-0.6) Eos # (Auto) 0.2 K/mm3 K/mm3 (0-0.3) Baso # (Auto) 0.1 K/mm3 K/mm3 (0.0-0.1) Abs Immat Gran (auto) 0.14 K/mm3 H K/mm3 (0.00-0.031) Absolute Neuts (auto) 15.6 K/mm3 H K/mm3 (1.3-6.7) Absolute Nucleated RBC 0.0 K/mm3 K/mm3 (0.0-0.012) Nucleated RBC % 0.0 % % (0.0-0.2) Patient hx anesthesia problems: none Family hx anesthesia problems: none Results Review: All pre-operative results and documents have been reviewed as part of the pre-operative evaluation. FOR[facility]LY [facility] Past Medical History Medical History (Updated 12/23/21 @ 09:02 by Joe Grijalva MD) History of depression Overweight (BMI 25.0-29.9) Self-harm Surgical History Surgical History No pertinent past surgical history Social History Social History Years smoked: 2 Smoking status: Current some day smoker Tobacco type: cigarettes Second hand tobacco smoke exposure: Yes Alcohol intake: current Drinks per week: 1 Substance use: former Substance use type: methamphetamine Last use: November Spiritual care concerns: No Anes - Eval Final PreProcedure Day of Procedure 12/23/21 09:01 Patient weight: overweight Heart: regular rate and rhythm Lungs: clear to auscultation and normal air movement Airway: Mallampati scale class II Neurological: alert and oriented Last oral intake: >/= 8 hours ASA classification: II Emergent: no Anesthetic plan: proceed Anesthesia type and monitoring: general GIVS and LMA Results Review: All pre-operative results and documents have been reviewed as part of the pre-operative evaluation. Informed Consent: The patient's anesthetic plan and its attendant risks and benefits were discussed with the patient/family/POA. Questions were solicited and answers provided to the satisfaction of the patient/family/POA.
--- NOTE | 2021-12-23 11:58 | PM.OBPNVD ---
OB - PN: Subj Subjective Date/time seen: 12/23/21 11:58 Interval history: Patient is to complaints of pain discomfort and is scheduled for I and D of that abscess today. She states that [place] and can get an OB follow-up following this. I explained that if things go well today she be of with go tonight and continue oral Bactrim with follow-up with her new OB person in a week I left it open that she could see us for her care she is unable to find help elsewhere. OB - PN: Obj Data Labs CBC & Chem 7: 12/23/21 06:27 12/21/21 07:59 Labs: Laboratory Results - last 24 hr 12/23/21 06:27 WBC 18.4 H RBC 3.41 L Hgb 10.4 L Hct 31.8 L MCV 93.3 MCH 30.5 MCHC 32.7 RDW 12.8 Plt Count 237 MPV 9.7 Immature Gran % (Auto) 0.8 H Neut % (Auto) 84.6 H Lymph % (Auto) 7.9 L [place] % (Auto) 5.5 Eos % (Auto) 0.9 Baso % (Auto) 0.3 Lymph # (Auto) 1.46 [place] # (Auto) 1.0 H Eos # (Auto) 0.2 Baso # (Auto) 0.1 Abs Immat Gran (auto) 0.14 H Absolute Neuts (auto) 15.6 H Absolute Nucleated RBC 0.0 Nucleated RBC % 0.0 Imaging Radiologist's impression: Impressions Soft Tissue Ultrasound 12/22/21 16:10 IMPRESSION: 1. 2.2 x 4.0 x 7.9 cm loculated fluid collection in the subcutaneous tissues at the region of concern. Differential would include hematoma or abscess. OB - PN A/P Time Spent With Patient Time: Total time spent is greater than 50% in coordination of care (as documented) at patient's floor/unit and/or counseling patient:
--- NOTE | 2021-12-23 12:46 | SUR.PREOP ---
OB NURSE RICH CAME OVER AND ULTRASOUND HEART TONES. 150 FHT.
[2021-12-23] MEDS: LACTATED RINGERS 1,000 ML 30 ML IV CONT (13:11)
--- NOTE | 2021-12-23 13:42 | WPDHPUPDATE1 ---
History and Physical Update Update Date/Time: 12/23/21 13:42 History and Physical has been reviewed, including an updated exam of the patient. There are NO changes in the patient's condition. Risks, benefits, and alternatives have been discussed and questions answered. Patient agrees to proceed with procedure.
[2021-12-23] MEDS: fentaNYL CITRATE INJ (*CRX) 100 MCG/2 ML VIAL 25 MCG IV PUSH (14:37)
--- NOTE | 2021-12-23 14:46 | P.OP_ITS ---
Procedure Note - Detailed Date of Procedure 12/23/21 Pre-op Diagnosis Right lower extremity infected hematoma Post-op Diagnosis Same Procedure Performed complex incision and drainage RLE infected hematoma Surgeon Corina Martinez MD Anesthesia General and Local Indications 21 y/o F c large infected hematoma in RLE s/p fall Findings 9x4x8 cm abscess/infected hematoma RLE Description of Procedure The patient was taken to the operating room and placed in the supine position. After adequate induction of general anesthesia, the patient was prepped and draped in the normal sterile fashion. A time-out was then done to verify the patient's identity, as well as the procedure being performed. I began by localizing the area over the most fluctuant area of this abscess, which was located on the medial right lower extremity next to the knee. I then made an incision in this area and gain access into the abscess cavity. The abscess cavity was noted to be deep within the subcutaneous tissue, however did not invo lve the patella itself. Once into the cavity, a large amount of purulent drainage was noted. This cavity was complex and multiple loculations were broken up bluntly. Once the cavity was completely drained it measured approximately 9 x 4 x 8 cm. I then copiously washed this out with sterile saline. The cavity was then packed with 1 in iodoform, approximately 3 yards. Sterile dressing was then placed. Patient tolerated the procedure well and was extubated in the operating room postoperative. She will transfer to recovery room in stable condition. Estimated Blood Loss 5 Drains No Packing Yes Pathology None sent Complications No immediate complications Condition Stable Disposition PACU [facility] Billing Surgery - Charge Forward: Surgery Billing
[2021-12-24 04:37] VITALS: BP 113/61; PULSE 91; RESP 16; TEMP 36.3; O2SAT 97
[2021-12-24 08:00] VITALS: PULSE 91; RESP 16; O2SAT 92
[2021-12-24 08:22] VITALS: O2SAT 92
--- NOTE | 2021-12-24 08:49 | PM.GYNPNOP ---
FINISHED STOCK INSPECTOR - A/P Postoperative Procedures: Procedures Operation Date: 12/23/21 14:00 Actual Procedure Side Surgeon p Incision and Drainage Abscess Right Lower Extremity Right Corina Roberto Martinez MD Time Spent With Patient Time: Total time spent is greater than 50% in coordination of care (as documented) at patient's floor/unit and/or counseling patient: Time with patient: less than 15 minutes FINISHED STOCK INSPECTOR- PN:Subj Post-Op Subjective Date/time seen: 12/24/21 08:49 Interval history: Patient is to complaints of pain discomfort and is scheduled for I and D of that abscess today. She states that she [place] a doctor in [place] and can get an OB follow-up following this. I explained that if things go well today she be of with go tonight and continue oral Bactrim with follow-up with her new OB person in a week I left it open that she could see us for her care she is unable to find help elsewhere. Review of Systems Review of Systems: All systems reviewed & are unremarkable except as noted in HPI and below Exam Const: General: no acute distress Eyes: General: appearance normal, both eyes and all related structures Neck: Neck: supple and no JVD Thyroid: thyroid normal Resp: Effort & Inspection: normal respiratory effort Auscultation: clear to auscultation bilaterally Cardio: Rate: regular rate Rhythm: regular rhythm GI: Inspection: non-distended GI Palp: Yes Soft to palpation, No Tenderness to palpation present (GI) and No Guarding due to palpation present (GI) Auscultation: normal bowel sounds : General: Yes bladder normal to palpation External Female Exam: normal external appearance Speculum Exam - Vagina: normal vaginal discharge and No vaginal bleeding Speculum Exam - Cervix: nontender Bimanual exam- vagina & uterus: bladder normal to palpation and No Cervical tenderness present OB/external & speculum: No vaginal bleeding Skin: General skin exam: no rashes or lesions noted Extrem: General: normal to inspection and no edema Psych: Mental Status: mental status grossly normal Affect: normal affect FINISHED STOCK INSPECTOR - PN: Obj Data Vital Signs Vital Signs: Vital Signs - 24 hr 12/23/21 09:01 12/23/21 13:04 12/23/21 14:20 Temperature 96.7 F L 98.7 F 98.1 F Pulse Rate 83 87 91 Respiratory Rate 18 14 10 L Blood Pressure 114/65 112/62 103/65 Pulse Oximetry 99 100 99 12/23/21 14:35 12/23/21 14:50 12/23/21 15:05 Temperature Pulse Rate 90 88 88 Respiratory Rate 19 21 H 21 H Blood Pressure 107/67 108/66 108/63 Pulse Oximetry 100 100 100 12/23/21 15:20 12/23/21 15:35 12/23/21 16:05 Temperature 97.5 F L 96.4 F L 97.1 F L Pulse Rate 92 85 100 Respiratory Rate 16 16 18 Blood Pressure 106/69 110/74 107/56 L Pulse Oximetry 100 98 100 12/23/21 22:00 12/24/21 04:37 12/24/21 08:22 Temperature 98.7 F 97.4 F L Pulse Rate 98 91 Respiratory Rate 16 16 Blood Pressure 100/66 113/61 Pulse Oximetry 98 97 92 Intake/Output Intake/Output: Intake & Output 12/21/21 12/22/21 12/23/21 12/24/21 23:59 23:59 23:59 23:59 Intake Total 2736 3710 150 300 Output Total 1800 8542 363 9149 Balance 936 2710 -750 -1200 Meds/Results Medications: Active Medications Generic Name Dose Route Start Last Admin Trade Name Freq PRN Reason Stop Dose Admin Acetaminophen 1,000 mg 12/22/21 14:16 12/23/21 23:06 Acetaminophen 500 Mg Tablet PO 1,000 mg Q6H PRN Administration Mild Pain (1-3) or Fever Ondansetron HCl 4 mg 12/20/21 22:08 Ondansetron Inj 4 Mg/2 Ml Vial IV PUSH Q4H PRN Nausea Trimethoprim/Sulfamethoxazole 1 tab 12/22/21 09:00 12/23/21 20:52 Trimethoprim/Sulfamethoxazole 160-800 Mg Ds Tablet PO 1 tab Q12HR KERRI Administration Radiology Results: ITS Impressions Tibia/Fibula X-Ray 12/20/21 18:08 IMPRESSION: No acute osseous finding in the right tibia or fibula. Venous Doppler Study 12/21/21 09:22 IMPRESSION: 1. No deep venous thrombosis. 2. Subcutaneous inflammation in
[2021-12-24] MEDS: ACETAMINOPHEN 500 MG TABLET 1000 MG PO (08:57)
--- NOTE | 2021-12-24 10:32 | PM.PNGS ---
Progress Note: A&P Assessment and Plan (1) Infected hematoma: Code(s): T14.8XXA - Other injury of unspecified body region, initial encounter; L08.9 - Local infection of the skin and subcutaneous tissue, unspecified Status: Acute Assessment and Plan: improved s/p I and D, instructions for local wound care, home c analgesia, po abx, f/u 2 wks Subjective Subjective Date/Time Seen: 12/24/21 10:32 feels better, now just incisional pain Review of Systems Review of Systems: All systems reviewed & are unremarkable except as noted in HPI and below Exam Const: General: cooperative, comfortable and no acute distress Resp: Auscultation: clear to auscultation bilaterally Cardio: Rate: regular rate Rhythm: regular rhythm GI: Inspection: normal to inspection GI Palp: Yes Soft to palpation and No Tenderness to palpation present (GI) Skin: Other: RLE abscess - slowly unpacked, good drainage, decreased pain, swelling, erythema Objective Data Vital Signs Vital Signs: Vital Signs - 24 hr 12/23/21 13:04 12/23/21 14:20 12/23/21 14:35 Temperature 37.1 C 36.7 C Pulse Rate 87 91 90 Respiratory Rate 14 10 L 19 Blood Pressure 112/62 103/65 107/67 Pulse Oximetry 100 99 100 12/23/21 14:50 12/23/21 15:05 12/23/21 15:20 Temperature 36.4 C L Pulse Rate 88 88 92 Respiratory Rate 21 H 21 H 16 Blood Pressure 108/66 108/63 106/69 Pulse Oximetry 100 100 100 12/23/21 15:35 12/23/21 16:05 12/23/21 22:00 Temperature 35.8 C L 36.2 C L 37.1 C Pulse Rate 85 100 98 Respiratory Rate 16 18 16 Blood Pressure 110/74 107/56 L 100/66 Pulse Oximetry 98 100 98 12/24/21 04:37 12/24/21 08:22 Temperature 36.3 C L Pulse Rate 91 Respiratory Rate 16 Blood Pressure 113/61 Pulse Oximetry 97 92 Intake/Output Intake/Output: Intake & Output 12/21/21 12/22/21 12/23/21 12/24/21 23:59 23:59 23:59 23:59 Intake Total 2736 3710 150 400 Output Total 1800 3369 132 2030 Balance 936 5471 -879 -4782 Meds/Results Medications: Active Medications Generic Name Dose Route Start Last Admin Trade Name Yovaniq PRN Reason Stop Dose Admin Acetaminophen 1,000 mg 12/22/21 14:16 12/24/21 08:57 Acetaminophen 500 Mg Tablet PO 1,000 mg Q6H PRN Administration Mild Pain (1-3) or Fever Ondansetron HCl 4 mg 12/20/21 22:08 Ondansetron Inj 4 Mg/2 Ml Vial IV PUSH Q4H PRN Nausea Trimethoprim/Sulfamethoxazole 1 tab 12/22/21 09:00 12/24/21 08:57 Trimethoprim/Sulfamethoxazole 160-800 Mg Ds Tablet PO 1 tab Q12HR KERRI Administration Radiology Results: ITS Impressions Tibia/Fibula X-Ray 12/20/21 18:08 IMPRESSION: No acute osseous finding in the right tibia or fibula. Venous Doppler Study 12/21/21 09:22 IMPRESSION: 1. No deep venous thrombosis. 2. Subcutaneous inflammation in the patient's area of erythema in the right calf. Obstetrics Ultrasound 12/21/21 09:28 IMPRESSION: 1. Single living fetus in breech presentation. 2. Estimated weight is 348 g +/- 52 g, which correlates with the 26th percentile when 05/05/22 is used as estimated date of delivery. 3. Low-lying placenta. Soft Tissue Ultrasound 12/22/21 16:10 IMPRESSION: 1. 2.2 x 4.0 x 7.9 cm loculated fluid collection in the subcutaneous tissues at the region of concern. Differential would include hematoma or abscess.
== END 2021-12-24 12:10 | disposition home or self-care (01) | DRG 832 ==
LOC: ANHED 22:02 → ANH3MEDSUR 22:49
PROVIDERS: Surgery; Admitting Provider Student in an Organized Health Care Education/Training Program; Emergency Provider General Practice; Visit Provider Obstetrics & Gynecology
PROC: 0J9N0ZZ Drainage of Right Lower Leg Subcutaneous Tissue and Fascia, Open Approach (ICD-10-PCS; principal; 2021-12-23 14:00)
DX: O98.812 Other maternal infectious and parasitic diseases complicating pregnancy, second trimester (principal); L03.115 Cellulitis of right lower limb; O99.322 Drug use complicating pregnancy, second trimester; L02.415 Cutaneous abscess of right lower limb; Z3A.20 20 weeks gestation of pregnancy; O09.32 Supervision of pregnancy with insufficient antenatal care, second trimester; O99.332 Smoking (tobacco) complicating pregnancy, second trimester; F17.210 Nicotine dependence, cigarettes, uncomplicated; F32.9 Major depressive disorder, single episode, unspecified; O99.342 Other mental disorders complicating pregnancy, second trimester; F12.90 Cannabis use, unspecified, uncomplicated; W19.XXXA Unspecified fall, initial encounter; O9A.212 Injury, poisoning and certain other consequences of external causes complicating pregnancy, second trimester
CPT/HCPCS: 36415; 73590; 76816; 76882; 80053; 80074; 80307; 81001; 82550; 83605; 83735; 85025; 85610; 85730; 86140; 86592; 86703; 86762; 86850; 86900; 86901; 87040; 87086; 87088; 87147; 93971; 96361; 96365; 96367; 96374; 96375; 96376; 99285; A9270; C9803; G0378; G0432; J0131; J0690; J2704; J3010; J7030; J7120; U0003; U0005

== ENCOUNTER 2022-02-27 16:29 | Outpatient (RCR) | payer OTHER, MEDICAID, SELFPAY ==
[2022-03-01] MEDS: RHO(D) IMMUNE GLOBULIN 300 MCG/2 ML SYRINGE IM (17:59)
== END 2022-05-28 23:59 | disposition home or self-care (01) ==
LOC: ANHLAB 16:29
PROVIDERS: PCP Family Medicine; Visit Provider Student in an Organized Health Care Education/Training Program
DX: Z29.13 Encounter for prophylactic Rho(D) immune globulin (principal); O36.0190 Maternal care for anti-D [Rh] antibodies, unspecified trimester, not applicable or unspecified; Z3A.00 Weeks of gestation of pregnancy not specified
CPT/HCPCS: 36415; 85461; 90384; 96372; J2790

== ENCOUNTER 2022-03-14 16:15 | Outpatient (CLI) | payer OTHER, MEDICAID, SELFPAY ==
[2022-03-14] MEDS: TETANUS,DIPHTHERIA,AC PERTUSSIS ADULT (0.5 ML) BOOSTRIX IM (16:40)
== END 2022-03-14 16:16 | disposition home or self-care (01) ==
LOC: ANHOBOP 16:28
PROVIDERS: PCP Family Medicine; Visit Provider Student in an Organized Health Care Education/Training Program
DX: Z23 Encounter for immunization (principal)
CPT/HCPCS: 90471; 90715

== ENCOUNTER 2022-05-09 19:47 | Outpatient (CLI) | payer OTHER, SELFPAY ==
--- NOTE | 2022-05-10 05:31 | PM.OBTRLD ---
OB - Triage/Final Diagnosis Visit Information Date of evaluation: 05/10/22 Reason for evaluation: threatened labor Comments/Additional reasons for admission: I have assessed the risk for this patient, Cristallopez Sky, and determined that she would benefit from observation care.
== END 2022-05-09 20:50 | disposition home or self-care (01) ==
LOC: ANHOBOP 20:55 → ANHLDR 20:56
PROVIDERS: PCP Family Medicine; Visit Provider Obstetrics & Gynecology
DX: O41.8X90 Other specified disorders of amniotic fluid and membranes, unspecified trimester, not applicable or unspecified (principal); Z3A.00 Weeks of gestation of pregnancy not specified
CPT/HCPCS: 59025; 84112; 99199

== ENCOUNTER 2022-05-13 05:03 | Inpatient (IN) | payer OTHER, SELFPAY ==
[2022-05-13] VITALS (119 sets, daily range): BP systolic 66–157; BP diastolic 23–119; PULSE 66–279; RESP 16–18; TEMP 36.6–36.9; O2SAT 88–100; BMI 38.0
[2022-05-13] MEDS: LACTATED RINGERS 1,000 ML 125 ML IV CONT ×2 (08:14→10:43)
[2022-05-13 08:25] LABS: Basophils Percent Auto 0.2 % (0.2-1.2); Eosinophils Absolute Auto 0.1 K/mm3 (0-0.3); Eosinophils Percent Auto 0.4 % (0-4.4); Hematocrit 39.5 % (37.0-47.0); Hemoglobin 13.9 g/dL (12.0-15.0); Immature Granulocyte Absolute 0.09 K/mm3 (0.00-0.031); Immature Granulocyte Percent A 0.5 % (0-0.5); Lymphocytes Absolute Auto 1.93 K/mm3 (0.9-3.2); Lymphocytes Percent Auto 11.4 % (18.3-44.2); Mean Corpuscular HGB Conc 35.2 g/dl (32-36); Mean Corpuscular Hemoglobin 31.1 pg (26-34); Mean Corpuscular Volume 88.4 fl (80-100); Monocytes Absolute Auto 0.8 K/mm3 (0.1-0.6); Monocytes Percent Auto 4.4 % (2.6-8.5); Neutrophils Absolute Auto 14.1 K/mm3 (1.3-6.7); Neutrophils Percent Auto 83.1 % (45.5-73.1); Platelet Count Result 253 k/mm3 (150-375); Red Blood Count 4.47 M/mm3 (4.2-5.4); Red Cell Distribution Width 12.6 % (11.5-14.5); White Blood Count 16.9 K/mm3 (4.5-10.0)
--- NOTE | 2022-05-13 08:35 | LDADM ---
This patient, Cristal Sky, was admitted to Labor/Delivery/Recovery 105 on 05/13/22 at 05:03. Plans for labor, pain management and were discussed with patient. Patient/family oriented to hospital policies and general routines including ID bracelet, bed and alarms, visiting hours, pain management, procedures, bathroom and other care routines, personal items, smoking policy, room service/diet and guest tray routines, security routines, and visiting hours. Patient/Family are encouraged to report perceived risks to care and to ask questions if they do not understand what they are told or what they should do. See OBIX for further documentation.
[2022-05-13] MEDS: LACTATED RINGERS 1,000 ML 999 ML IV CONT (08:59)
--- NOTE | 2022-05-13 09:00 | WPDOBADMIT ---
Obstetrics - Admit Note Admission Note: record reviewed. Additions to the history and/or subsequent changes in the physical findings follow. 22 y/o G1 at 40 3/7 weeks here with contractions. GBS neg. AVSS NST reactive TOCO: contractions every 2-5 min ABD soft, nontender, gravid, vertex EXT nontender Cervix 5/100/-1. AROM with clear fluid. IUPC placed. A: IUP at term with labor. P: Anticipate .
[2022-05-13] MEDS: fentaNYL CITRATE INJ (*CRX) 100 MCG/2 ML VIAL IV PUSH (09:22)
--- NOTE | 2022-05-13 09:22 | WPDANESPN ---
Anes - Prog Note Post-Op Date/Time: 05/13/22 09:22 Cardiovascular status: normal Respiratory status: normal Airway patency: baseline Mental status: baseline Post-Op hydration status: normal Vital Signs: Last Vital Signs Temp 97.8 F 05/13/22 09:00 Pulse 91 05/13/22 08:17 BP 144/80 H 05/13/22 08:17 O2 Del Method Room Air 05/13/22 08:30 Pain Score (VAS): 0 I/O: Intake & Output 05/12/22 05/13/22 05/13/22 23:59 07:59 15:59 Intake Total 1000 Balance 1000 Laboratory Tests 05/13/22 08:04 05/13/22 05/13/22 05/13/22 08:04 08:04 08:04 WBC 16.9 H RBC 4.47 Hgb 13.9 D Hct 39.5 MCV 88.4 MCH 31.1 MCHC 35.2 RDW 12.6 Plt Count 253 MPV 10.0 Immature Gran % (Auto) 0.5 Neut % (Auto) 83.1 H Lymph % (Auto) 11.4 L [place] % (Auto) 4.4 Eos % (Auto) 0.4 Baso % (Auto) 0.2 Lymph # (Auto) 1.93 [place] # (Auto) 0.8 H Eos # (Auto) 0.1 Baso # (Auto) 0.0 Abs Immat Gran (auto) 0.09 H Absolute Neuts (auto) 14.1 H Absolute Nucleated RBC 0.0 Nucleated RBC % 0.0 RPR Pending Blood Type A Negative Antibody Screen Pending Post-procedural complaints: none Patient Feedback: Patient satisfied with anesthetic care.
--- NOTE | 2022-05-13 10:07 | WPDANESEPP ---
Anes - Eval Pre Procedure Procedure: Labor Pain Management Date/Time: 05/13/22 10:07 Surgeon: Issac Preop Diagnosis: Pain during labor Pre Op Diagnosis: IOL Patient Data Age: 22 Gender: F Height: 1.68 m Weight: 107 kg Last Vital Signs Temp 97.8 F 05/13/22 09:00 Pulse 114 H 05/13/22 10:05 BP 122/75 05/13/22 10:05 Pulse Ox 100 05/13/22 10:04 O2 Del Method Room Air 05/13/22 08:30 Allergies Allergy/AdvReac Type Severity Reaction Status Date / Time No Known Allergies Allergy Verified 04/11/22 13:35 Home Medications Medication Instructions Recorded Confirmed Type ferrous sulfate 325 mg (65 mg 325 mg PO DAILY 04/11/22 04/11/22 History iron) tablet,delayed release prenat.vits,luke,zxb-gfvw-hipfl 1 tablet PO DAILY 04/11/22 04/11/22 History Laboratory Tests 05/13/22 05/13/22 05/13/22 08:04 08:04 08:04 WBC 16.9 K/mm3 H K/mm3 (4.5-10.0) RBC 4.47 M/mm3 M/mm3 (4.2-5.4) Hgb 13.9 g/dL D g/dL (12.0-15.0) Hct 39.5 % % (37.0-47.0) MCV 88.4 fl fl (80-100) MCH 31.1 pg pg (26-34) MCHC 35.2 g/dl g/dl (32-36) RDW 12.6 % % (11.5-14.5) Plt Count 253 k/mm3 k/mm3 (150-375) MPV 10.0 fl fl (7.4-10.4) Immature Gran % (Auto) 0.5 % % (0-0.5) Neut % (Auto) 83.1 % H % (45.5-73.1) Lymph % (Auto) 11.4 % L % (18.3-44.2) [place] % (Auto) 4.4 % % (2.6-8.5) Eos % (Auto) 0.4 % % (0-4.4) Baso % (Auto) 0.2 % % (0.2-1.2) Lymph # (Auto) 1.93 K/mm3 K/mm3 (0.9-3.2) [place] # (Auto) 0.8 K/mm3 H K/mm3 (0.1-0.6) Eos # (Auto) 0.1 K/mm3 K/mm3 (0-0.3) Baso # (Auto) 0.0 K/mm3 K/mm3 (0.0-0.1) Abs Immat Gran (auto) 0.09 K/mm3 H K/mm3 (0.00-0.031) Absolute Neuts (auto) 14.1 K/mm3 H K/mm3 (1.3-6.7) Absolute Nucleated RBC 0.0 K/mm3 K/mm3 (0.0-0.012) Nucleated RBC % 0.0 % % (0.0-0.2) Urine Opiates Screen Urine Methadone Screen Ur Barbiturates Screen Ur Phencyclidine Scrn Ur Amphetamine Screen U Benzodiazepines Scrn Urine Cocaine Screen U Cannabinoids Screen RPR Pending Blood Type A Negative Antibody Screen Pending 05/13/22 08:04 WBC RBC Hgb Hct MCV MCH MCHC RDW Plt Count MPV Immature Gran % (Auto) Neut % (Auto) Lymph % (Auto) [place] % (Auto) Eos % (Auto) Baso % (Auto) Lymph # (Auto) [place] # (Auto) Eos # (Auto) Baso # (Auto) Abs Immat Gran (auto) Absolute Neuts (auto) Absolute Nucleated RBC Nucleated RBC % Urine Opiates Screen Pending Urine Methadone Screen Pending Ur Barbiturates Screen Pending Ur Phencyclidine Scrn Pending Ur Amphetamine Screen Pending U Benzodiazepines Scrn Pending Urine Cocaine Screen Pending U Cannabinoids Screen Pending RPR Blood Type Antibody Screen Other studies: UDS pending, Patient hx anesthesia problems: none Family hx anesthesia problems: none Results Review: All pre-operative results and documents have been reviewed as part of the pre-operative evaluation. [facility] Past Medical History Medical History History of depression Overweight (BMI 25.0-29.9) Polysubstance abuse meth, marijuana Self-harm Surgical History Surgical History No pertinent past surgical history Family History Family History Other Adopted Unknown family medical history Social History Social History (R
[2022-05-13 10:15] LABS: Amphetamine Screen Urine Negative (Negative); Barbiturate Screen Urine Negative (Negative); Benzodiazepines Screen Urine Negative (Negative); Cannabinoid Screen Urine Negative (Negative); Cocaine Screen Urine Negative (Negative); Methadone Screen Urine Negative (Negative); Opiate Screen Urine Negative (Negative); Phencyclidine Screen Urine Negative (Negative)
[2022-05-13] MEDS: ONDANSETRON INJ 4 MG/2 ML VIAL IV PUSH (10:47)
[2022-05-13] MEDS: OXYTOCIN 30 UNITS/NS 500 ML 30 UNITS/500 ML BAG (10:51)
--- NOTE | 2022-05-13 14:10 | PM.OBPRVD ---
OB - Delivery Note Procedure Delivery date: 05/13/22 Procedure: Induction method: None Delivery augmentation: Rupture of Membranes and Pitocin Delivery monitor: External FHT and External Uterine Route of delivery: Laceration Description: Perineal - 2nd Degree Delivery repair: vicryl (3-0) Quantitative Blood Loss (ml): 320 Anesthesia type: Epidural Disposition: PACU Complications: None Narrative: 22 y/o G1 at 40 3/7 weeks gestation who presented to the hospital with contractions. Labor was diagnosed. Amniotomy was performed with return of clear fluid. She received an epidural for pain control. Oxytocin was administered intravenously for labor augmentation. Her labor progressed and her cervix dilated completely. She pushed with good effort and delivered the infant's head to the perineum. A loose nuchal cord was splinted and the body delivered. The cord was reduced. The nose and mouth were bulb suctioned. After a delay, the cord was clamped and cut. The was handed off the field. Cord blood was collected. The placenta delivered spontaneously and was grossly normal in appearance. The usual 3 vessel cord was noted. A second degree midline perineal laceration was sustained. This was reapproximated using 3 0 Vicryl in the usual layered fashion. Excellent hemostasis resulted as did excellent reapproximation of the normal anatomy. Needle and instrument counts were correct. The patient was taken to recovery room in stable condition. The infant went to the nursery in stable condition. I was present and scrubbed for the entire delivery. [place] Baby Date of : 05/13/22 Time of : 13:40 Weeks of gestation at delivery: 40 gender: Female Weight (pounds): 7 Weight (ounces): 2 presentation: vertex position: Left Occiput Posterior Placenta delivery description: Spontaneous and Normal Configuration Cord Vessel Description: 3 Vessels, Nuchal Cord and Delayed Cord Clamping score one minute: 8 score five minutes: 9
--- NOTE | 2022-05-13 14:15 | PM.OBDSVD ---
DS: Admitting Diagnosis Discharge Date 05/14/22 Admitting Diagnosis IUP at 40 3/7 weeks Labor DS: Discharge Diagnosis Discharge Diagnosis (1) (normal spontaneous vaginal delivery): Code(s): O80 - Encounter for full-term uncomplicated delivery Status: Acute OB - DS: Summary OB Procedures : None OB Procedures Intrapartum: Spontaneous Vag Delivery OB Procedures: : None Time Spent with Patient Time attestation: Total time spent providing and/or coordinating discharge services: DS: Data Data Completed and Pending Labs on day of discharge: Labs from last 24 hours 05/13/22 05/13/22 05/13/22 08:04 08:04 08:04 WBC RBC Hgb Hct MCV MCH MCHC RDW Plt Count MPV Immature Gran % (Auto) Neut % (Auto) Lymph % (Auto) [place] % (Auto) Eos % (Auto) Baso % (Auto) Lymph # (Auto) [place] # (Auto) Eos # (Auto) Baso # (Auto) Abs Immat Gran (auto) Absolute Neuts (auto) Absolute Nucleated RBC Nucleated RBC % Urine Opiates Screen Negative Urine Methadone Screen Negative Ur Barbiturates Screen Negative Ur Phencyclidine Scrn Negative Ur Amphetamine Screen Negative U Benzodiazepines Scrn Negative Urine Cocaine Screen Negative U Cannabinoids Screen Negative RPR Pending Blood Type A Negative Antibody Screen Positive Antibody Identification Passive Due to RH Imm Glob Antigen Identification Cancelled JAMAL, IgG Interpret Not Performed JAMAL, Poly Interpret Neg JAMAL, Complement Interp Not Performed 05/13/22 08:04 WBC 16.9 H RBC 4.47 Hgb 13.9 D Hct 39.5 MCV 88.4 MCH 31.1 MCHC 35.2 RDW 12.6 Plt Count 253 MPV 10.0 Immature Gran % (Auto) 0.5 Neut % (Auto) 83.1 H Lymph % (Auto) 11.4 L [place] % (Auto) 4.4 Eos % (Auto) 0.4 Baso % (Auto) 0.2 Lymph # (Auto) 1.93 [place] # (Auto) 0.8 H Eos # (Auto) 0.1 Baso # (Auto) 0.0 Abs Immat Gran (auto) 0.09 H Absolute Neuts (auto) 14.1 H Absolute Nucleated RBC 0.0 Nucleated RBC % 0.0 Urine Opiates Screen Urine Methadone Screen Ur Barbiturates Screen Ur Phencyclidine Scrn Ur Amphetamine Screen U Benzodiazepines Scrn Urine Cocaine Screen U Cannabinoids Screen RPR Blood Type Antibody Screen Antibody Identification Antigen Identification JAMAL, IgG Interpret JAMAL, Poly Interpret JAMAL, Complement Interp Discharge Plan Discharge Attending physician on discharge: Pasquale Jarrell Discharging Clinician: Félix Davenport Patient Disposition: Home, Self-Care Activity: pelvic rest Diet: regular Discharge Instructions: Call or return if temperature above 100.4? F, increased abdominal pain, increased vaginal bleeding or any new problems. Stand Alone Forms: General Discharge Information Follow-up/Referrals: Pasquale Jarrell MD [Physician] - 6 Weeks Discharge Medications: New ibuprofen 600 mg tablet 600 mg PO Q6H PRN (Reason: cramps) Qty: 30 0RF ferrous sulfate 325 mg (65 mg iron) tablet,delayed release (DR/EC) 325 mg PO DAILY Qty: 30 0RF Continued #2 Tablet 1 tablet PO DAILY Discontinued ferrous sulfate 325 mg (65 mg iron) Tablet,Delayed Release (Dr/Ec) 325 mg PO DAILY Date of admission: 05/13/22 05:03 Primary Care Provider: Carlos,John Stauffer Admitting Provider: Félix Davenport Attending physician on admission: Félix Davenport Condition: Stable
[2022-05-13] MEDS: IBUPROFEN 600 MG TABLET PO ×2 (16:05→22:00)
[2022-05-13] MEDS: BENZOCAINE 20% AER SPR (*SP) 56 GM CAN 1 SPRAY TOPICAL (16:06)
[2022-05-13] MEDS: WITCH HAZEL 40 PADS 1 PAD TOPICAL (16:07)
--- NOTE | 2022-05-13 17:05 | OBPPTRN ---
1653-Patient transferred to post room #282 via wheelchair. Support person present. Oriented to unit, room, information board, rooming in, admission packet and security measures. Patient verbalizes understanding.
[2022-05-13] MEDS: ACETAMINOPHEN 325 MG TABLET 650 MG PO (19:35)
[2022-05-14] VITALS: BP 101/57; PULSE 104; RESP 18; TEMP 36.6; O2SAT 97
[2022-05-14] MEDS: ACETAMINOPHEN 325 MG TABLET 650 MG PO ×3 (01:00→16:24)
[2022-05-14 04:00] VITALS: BP 107/63; PULSE 92; RESP 16; TEMP 36.6; O2SAT 98
[2022-05-14] MEDS: IBUPROFEN 600 MG TABLET PO ×3 (04:10→22:07)
[2022-05-14 04:39] LABS: Hematocrit 27.1 % (37.0-47.0); Hemoglobin 9.2 g/dL (12.0-15.0)
[2022-05-14 08:00] VITALS: BP 111/65; PULSE 84; RESP 16; TEMP 36.7; O2SAT 98
[2022-05-14] MEDS: MULTIVIT/MIN/PREN/FOL AC/IRON TABLET 1 TAB PO (08:19)
[2022-05-14] MEDS: POLYSACCHARIDE IRON COMPLEX 150 MG CAPSULE PO ×2 (08:19→16:23)
[2022-05-14] MEDS: DOCUSATE SODIUM 100 MG CAPSULE PO ×2 (08:19→16:23)
--- NOTE | 2022-05-14 09:45 | PM.OBPNVD ---
OB - PN: Subj Subjective Date/time seen: 05/14/22 09:45 Narrative: Pain OK. Would like to go home. OB - PN: Obj Data Labs CBC & Chem 7: 05/14/22 04:24 Labs: Laboratory Results - last 24 hr 05/13/22 05/13/22 05/14/22 08:04 08:04 04:24 Hgb 9.2 L D Hct 27.1 L Urine Opiates Screen Negative Urine Methadone Screen Negative Ur Barbiturates Screen Negative Ur Phencyclidine Scrn Negative Ur Amphetamine Screen Negative U Benzodiazepines Scrn Negative Urine Cocaine Screen Negative U Cannabinoids Screen Negative Blood Type A Negative Antibody Screen Positive Antibody Identification Passive Due to RH Imm Glob Antigen Identification Cancelled JAMAL, IgG Interpret Not Performed JAMAL, Poly Interpret Neg JAMAL, Complement Interp Not Performed Screen Baby's Blood Type Baby's JAMAL Doses of RhIg Required 05/14/22 04:24 Hgb Hct Urine Opiates Screen Urine Methadone Screen Ur Barbiturates Screen Ur Phencyclidine Scrn Ur Amphetamine Screen U Benzodiazepines Scrn Urine Cocaine Screen U Cannabinoids Screen Blood Type A Negative Antibody Screen Antibody Identification Cancelled Antigen Identification Cancelled JAMAL, IgG Interpret Cancelled JAMAL, Poly Interpret Cancelled JAMAL, Complement Interp Cancelled Screen Negative Baby's Blood Type A pos Baby's JAMAL Positive Doses of RhIg Required 1 OB - PN A/P Plan Comments: A: PPD#1, doing well. Wants to go home. P: Home to f/u 6 weeks. Exam Psych: Other: AVSS ABD soft, nontender, fundus firm EXT nontender
[2022-05-14] MEDS: RHO(D) IMMUNE GLOBULIN 300 MCG/2 ML SYRINGE IM (10:09)
--- NOTE | 2022-05-14 10:10 | WPDANLDPN2 ---
Anes-Prog Note L&D Date/Time: 05/14/22 10:10 Comfortable throughout: labor and delivery Neuraxial method: epidural Epidural/Spinal procedure site: clean & non-tender Neuro status: Neuro function grossly intact. Cardiovascular status: normal Respiratory status: normal Airway patency: baseline Mental status: baseline Post-Op hydration status: normal Vital Signs: Last Vital Signs Temp 98.1 F 05/14/22 08:00 Pulse 84 05/14/22 08:00 Resp 16 05/14/22 08:00 BP 111/65 05/14/22 08:00 Pulse Ox 98 05/14/22 08:00 O2 Del Method Room Air 05/14/22 08:00 Pain score (VAS): 0 Post-procedural complaints: none Patient feedback: Patient satisfied with anesthetic care.
[2022-05-14 12:00] VITALS: BP 129/77; PULSE 103; RESP 16; TEMP 36.8; O2SAT 99
[2022-05-14 19:20] VITALS: BP 126/78; PULSE 107; RESP 16; TEMP 36.8; O2SAT 98
[2022-05-15] MEDS: IBUPROFEN 600 MG TABLET PO ×2 (05:49→14:46)
--- NOTE | 2022-05-15 06:47 | PM.DS ---
DS: Admitting Diagnosis Discharge Date 05/15/22 Admitting Diagnosis term DS: Summary Hospital Course Reason for hospitalization: active labor Hospital Course: patient underwent spontaneous vaginal delivery on 05/13/2022 which was unremarkable. Her hospital course was unremarkable. She was up, voiding without difficulty, ambulating, generally without complaints. Time Spent with Patient Time attestation: Total time spent providing and/or coordinating discharge services: DS: Data Data Completed and Pending Labs on day of discharge: Labs from last 24 hours 05/14/22 04:24 Blood Type A Negative Antibody Screen Antibody Identification Cancelled Antigen Identification Cancelled JAMAL, IgG Interpret Cancelled JAMAL, Poly Interpret Cancelled JAMAL, Complement Interp Cancelled Screen Negative Baby's Blood Type A pos Baby's JAMAL Positive Doses of RhIg Required 1 Discharge Plan Discharge Attending physician on discharge: Pasquale Jarrell Discharging Clinician: Félix Davenport Patient Disposition: Home, Self-Care Activity: no straining and pelvic rest Diet: regular Wound Care Instructions: follow printed instructions Discharge Instructions: Call or return if temperature above 100.4? F, increased abdominal pain, increased vaginal bleeding or any new problems. Stand Alone Forms: General Discharge Information Follow-up/Referrals: Pasquale Jarrell MD [Physician] - 6 Weeks Discharge Medications: New ibuprofen 600 mg tablet 600 mg PO Q6H PRN (Reason: cramps) Qty: 30 0RF ferrous sulfate 325 mg (65 mg iron) tablet,delayed release (DR/EC) 325 mg PO DAILY Qty: 30 0RF Continued #2 Tablet 1 tablet PO DAILY Discontinued ferrous sulfate 325 mg (65 mg iron) Tablet,Delayed Release (Dr/Ec) 325 mg PO DAILY Date of admission: 05/13/22 05:03 Primary Care Provider: Carlos,John Stauffer Admitting Provider: Félix Davenport Attending physician on admission: Félix Davenport Condition: Stable
--- NOTE | 2022-05-15 06:49 | PM.OBPNVD ---
OB - PN: Subj Subjective Date/time seen: 05/15/22 06:49 Patient comments: no complaints and pain well controlled baby status: doing well OB - PN: Obj Data Labs CBC & Chem 7: 05/14/22 04:24 Labs: Laboratory Results - last 24 hr 05/14/22 04:24 Blood Type A Negative Antibody Screen Antibody Identification Cancelled Antigen Identification Cancelled JAMAL, IgG Interpret Cancelled JAMAL, Poly Interpret Cancelled JAMAL, Complement Interp Cancelled Screen Negative Baby's Blood Type A pos Baby's JAMAL Positive Doses of RhIg Required 1 OB - PN A/P Plan day: 2 Plan: routine care, discharge home and follow up 6 weeks Time Spent With Patient Time: Total time spent is greater than 50% in coordination of care (as documented) at patient's floor/unit and/or counseling patient: Time with patient: less than 15 minutes Exam Const: General: cooperative, healthy appearing and comfortable Nutritional Appearance: average body habitus
[2022-05-15] MEDS: MULTIVIT/MIN/PREN/FOL AC/IRON TABLET 1 TAB PO (07:48)
[2022-05-15] MEDS: DOCUSATE SODIUM 100 MG CAPSULE PO (07:48)
[2022-05-15] MEDS: POLYSACCHARIDE IRON COMPLEX 150 MG CAPSULE PO (07:49)
[2022-05-15] MEDS: LANOLIN (LANSINOH) 7.5 GM CREAM 1 APPLIC TOPICAL (07:52)
[2022-05-15] MEDS: ACETAMINOPHEN 325 MG TABLET 650 MG PO (08:14)
[2022-05-15 08:23] VITALS: BP 121/90; PULSE 91; RESP 18; TEMP 36.7; O2SAT 100
[2022-05-15 09:12] LABS: Rapid Plasma Reagin Non-Reactive (NonReactive)
--- NOTE | 2022-05-15 11:34 | PC.NURSE ---
Patient viewed the discharge video Mother & Baby Care, The First Two Weeks . Patient was given the opportunity and encouraged to ask questions. Patient verbalized understanding of information shared and has been given the mother/baby guide for home reference.
--- NOTE | 2022-05-15 15:00 | PCCCNOTE ---
Addendum entered by JAKE Hyde 05/24/22 11:46: Received call from [facility] detective investigator Rafia Alvarado, out of [facility] office, . Rafia reports she will go out and attempt contact with baby and mother Cristal today. Rafia requests copy of positive umbilical test results which was faxed to [phone]. Addendum entered by JAKE Hyde 05/24/22 09:42: Received information from [facility] that a report has been initiated based on below information and DCFS will attempt to make contact with pt. and baby at their home. Addendum entered by JAKE Hyde 05/24/22 08:29: Received information that baby [place] umbilical cord screen came back positive for Methamphetamines. Submitted online [facility] report # [id number]. Original Note: Care Coordination Note: Met with pt. today who reports this is her first child. Currently lives at home with FOB/significant other Darren. Pt. has all necessary supplies for the baby including a car seat, crib, clothing, diapers, and a breast pump. Plans to breastfeed at discharge and is working with the nurse here. Pt. was provided resources and states she has already signed up for [facility] services. Pt. states she still lives in the [facility]. She reports she has been doing well since her last hospitalization. Has not been using any substances. Pt. aware she and baby were substance tested and were negative via urinalysis. Baby's umbilical cord is pending at this time. Pt. reports she has support between Darren and her mother Vanessa. Denies any case management needs. Anticipates discharging home today.
== END 2022-05-15 16:25 | disposition home or self-care (01) | DRG 807 ==
LOC: ANHLDR 14:17 → ANHOB2 05-15 09:04 → ANHLDR 05-16 09:09 → ANHOB2 05-16 09:09
PROVIDERS: Admitting Provider Obstetrics & Gynecology; PCP Family Medicine; Visit Provider Obstetrics & Gynecology
DX: O69.81X0 Labor and delivery complicated by cord around neck, without compression, not applicable or unspecified (principal); Z37.0 Single live birth; Z3A.40 40 weeks gestation of pregnancy; O36.8330 Maternal care for abnormalities of the fetal heart rate or rhythm, third trimester, not applicable or unspecified; O70.1 Second degree perineal laceration during delivery
CPT/HCPCS: 36415; 80307; 85014; 85018; 85025; 85461; 86592; 86850; 86880; 86900; 86901; 90384; A9270; J2405; J2590; J2790; J2795; J3010; J7120